=== PATIENT | male | born 1960 | race Caucasian/White ===

== ENCOUNTER 2017-11-08 12:04 | Emergency (ER) | payer OTHER ==
[~2017-11-08] VITALS: Ht 170.2 cm; Wt 74.8 kg
--- NOTE | 2017-11-08 12:04 | NUR ---
[id number] FROM [facility] SITE C/O CARDIAC ARREST, PER BASE CALL REPORT, CPR STARTED WHEN EMS ARRIVED THE SCENE AROUND 1142 EPINEPHRINE x 4, DEFIBRILLATE x 4, AMIODARONE 300MG GIVEN IN THE FIELD. CONTINUE CPR AT BS, DR PARHAM AT BS.
--- NOTE | 2017-11-08 12:04 | NUR ---
BBRA 102: CPR. ARRIVAL TIME 12:01PM.
[2017-11-08] MEDS ORDERED: DEXTROSE 50%-WATER 50 ML DISP.SYRIN IV ONE (12:07)
[2017-11-08] MEDS ORDERED: EPINEPHRINE (1:10,000) SYRINGE 1 MG/10 ML DISP.SYRIN IVP ONE (12:07)
[2017-11-08] MEDS ORDERED: SODIUM BICARBONATE SYR 50 MEQ/50 ML DISP.SYRIN IV ONE (12:07)
--- NOTE | 2017-11-08 12:20 | NUR ---
SEE CODE BLUE SHEET.
--- NOTE | 2017-11-08 12:20 | NUR ---
CHRONOLOGY OF CPR IN THE ED 1201-ARRIVED, ED CPR INITIATED. 1204-EPINEPHRINE 0.5MG IV GIVEN 1204-SODIUM BICARBONATE 8.4% IV GIVEN 1205-SODIUM BICARBONATE 8.4% IV GIVEN 1206-50% DEXTROSE IV GIVEN 1207-BLOOD GLUCOSE LEVEL CHECKED: 88 1209-EPINEPHRINE 1MG IV GIVEN 1212-SHOCK DELIVERED AT 200J 1213-EPINEPHRINE 1MG IV GIVEN 1215-SODIUM BICARBONATE 8.4% IV GIVEN 1217-EPINEPHRINE 0.5MG IV GIVEN 1218-PATIENT PRONAUNSED BY Alba RODRIGUEZ
--- NOTE | 2017-11-08 12:52 | NUR ---
CALLED [facility] AND SPOKE WITH JESICA HOOD. NO EMERGENCY CONTACT INFORMATION AVAILABLE AND NO MEDICAL HISTORY AVAILABLE
--- NOTE | 2017-11-08 12:58 | NUR ---
DR PARHAM TALKING TO THE FAMILY.
[2017-11-08 14:44] VITALS: BP 0/0
== END 2017-11-08 14:45 ==
LOC: ER 12:06 → EDBD 12:06 → ER 14:45
DX: I46.9 Cardiac arrest, cause unspecified (principal); E11.9 Type 2 diabetes mellitus without complications
CPT/HCPCS: 82962; 99291; J0171; J3490